=== PATIENT | female | born 1985 | race Caucasian/White ===

== ENCOUNTER 2019-07-21 13:04 | Outpatient (CLI) | payer OTHER | END 2019-07-21 14:39 | disposition home or self-care (01) | LOC: NST 13:04 | DX: Z34.83 Encounter for supervision of other normal pregnancy, third trimester (principal) ==

== ENCOUNTER 2019-07-31 08:57 | Outpatient (CLI) | payer OTHER | END 2019-07-31 09:55 | disposition home or self-care (01) | LOC: NST 08:57 | DX: Z34.83 Encounter for supervision of other normal pregnancy, third trimester (principal) ==

== ENCOUNTER 2019-08-13 12:04 | Outpatient (CLI) | payer OTHER | END 2019-08-13 13:16 | disposition home or self-care (01) | LOC: NST 12:04 | DX: Z34.83 Encounter for supervision of other normal pregnancy, third trimester (principal) ==

== ENCOUNTER 2019-08-20 11:47 | Inpatient (IN) | payer OTHER ==
[~2019-08-20] VITALS: Ht 154.9 cm; Wt 3.2 kg
[2019-08-29] MEDS ORDERED: PRENATAL CAPLE1 EAC1 PO (01:29)
[2019-08-29] MEDS ORDERED: SYNTHROID75 MCG PO (01:29)
== END 2019-09-01 14:21 | disposition home or self-care (01) | DRG 788 ==
LOC: OB/GYN 08-27 14:45 → LDR 08-29 00:37 → SURG-SUITE 08-29 00:37 → OB/GYN 08-29 11:09 → SURG-SUITE 08-29 11:21 → OB/GYN 09-20 14:45
PROVIDERS: ADMIT Obstetrics & Gynecology Maternal & Fetal Medicine
PROC: 4A1HXFZ Monitoring of Products of Conception, Cardiac Rhythm, External Approach (ICD-10-PCS; 2019-08-29)
PROC: 3E033VJ Introduction of Other Hormone into Peripheral Vein, Percutaneous Approach (ICD-10-PCS; 2019-08-29)
PROC: 4A033R1 Measurement of Arterial Saturation, Peripheral, Percutaneous Approach (ICD-10-PCS; 2019-08-29)
PROC: 10D00Z1 Extraction of Products of Conception, Low, Open Approach (ICD-10-PCS; principal; 2019-08-29 18:00)
DX: O69.0XX0 Labor and delivery complicated by prolapse of cord, not applicable or unspecified (principal); O99.89 Other specified diseases and conditions complicating pregnancy, childbirth and the puerperium; R00.1 Bradycardia, unspecified; Z3A.36 36 weeks gestation of pregnancy; Z37.0 Single live birth

== ENCOUNTER 2019-08-26 04:54 | Outpatient (CLI) | payer OTHER | END 2019-08-26 10:23 | disposition home or self-care (01) | LOC: OBS/DEL 04:54 | DX: O60.03 Preterm labor without delivery, third trimester (principal) ==

== ENCOUNTER 2019-08-28 10:17 | Outpatient (CLI) | payer OTHER ==
[2019-08-29] MEDS ORDERED: PRENATAL CAPLE1 EAC1 PO (01:29)
[2019-08-29] MEDS ORDERED: SYNTHROID75 MCG PO (01:29)
== END 2019-08-28 11:05 | disposition home or self-care (01) ==
LOC: NST 10:17
DX: Z34.83 Encounter for supervision of other normal pregnancy, third trimester (principal)

== ENCOUNTER 2022-12-06 10:00 | Emergency (ER) | payer OTHER ==
[~2022-12-06] VITALS: Ht 154.9 cm; Wt 64.4 kg
[~2022-12-06 10:00] MED LIST: PRENATAL CAPLE1 EAC1 PO; SYNTHROID75 MCG PO
== END 2022-12-06 14:34 | disposition home or self-care (01) ==
LOC: ER 10:00
DX: J06.9 Acute upper respiratory infection, unspecified (principal); R53.81 Other malaise; Z20.822 Contact with and (suspected) exposure to COVID-19